=== PATIENT | male | born 1965 ===

== ENCOUNTER 2022-01-25 23:24 | Emergency (ER) | payer SELFPAY ==
[2022-01-26] MEDS ORDERED: Ketorolac 30 MG/ML SDV IM STA (01:53)
== END 2022-01-26 03:45 | disposition home or self-care (01) ==
LOC: MW.ED 23:24
DX: S20.219A Contusion of unspecified front wall of thorax, initial encounter (principal); E07.89 Other specified disorders of thyroid; W18.30XA Fall on same level, unspecified, initial encounter
CPT/HCPCS: 71250; 72125; 93005; 96372; 99283; J1885; 93010